=== PATIENT | female | born 1975 | race Caucasian/White ===

== ENCOUNTER 2021-07-26 10:02 | Emergency (ER) | payer OTHER, SELFPAY ==
--- NOTE | 2021-07-26 10:11 | ED.EAR ---
HPI - Ear Problem General Chief complaint: Ear Stated complaint: Possible Ear infection in right Ear Time Seen by Provider: 07/26/21 10:13 Source: patient and RN notes reviewed Mode of arrival: ambulatory Limitations: no limitations History of Present Illness HPI Narrative: 46-year-old female presents to the [facility] with complaints of right ear pain. Patient reports that it kept her up most of last night. Had tried Tylenol and some sinus pills. Was tested 2 days ago for flu, strep, Covid at another urgent care. Reports all of them were negative. Related Data Home Medications Medication Instructions Recorded Confirmed propranolol 10 mg PO DAILY 07/26/21 07/26/21 rizatriptan 10 mg PO ONCE 07/26/21 07/26/21 Allergies Allergy/AdvReac Type Severity Reaction Status Date / Time No Known Allergies Allergy Verified 07/26/21 10:19 Review of Systems Review of Systems: All systems reviewed & are unremarkable except as noted in HPI and below Constitutional: Constitutional: Reports no additional constitutional complaints, Denies chills and Denies fever(s) Eyes: Eyes: Reports no additional eye complaints ENT: Reports as per HPI, Denies vertigo, Denies dizziness, Denies nasal congestion and Denies sore throat Comments: Right ear pain Cardiovascular: Cardiovascular: Reports no additional cardiovascular complaints Respiratory: Respiratory: Reports no additional respiratory complaints Musculoskeletal: Musculoskeletal: Reports no additional musculoskeletal complaints Integumentary/Breasts: Skin/Breast: Reports system reviewed and no additional complaints, except as docu Neurologic: Reports system reviewed and no additional complaints, except as documented Psychiatric: Psychiatric: Reports no additional psychiatric complaints Allergic/Immunologic: Allergic/Immunologic: Reports no additional allergic/immunologic complaints [facility] Past Medical History Medical History (Updated 07/27/21 @ 09:45 by Corinne Maldonado) Migraines Surgical History Surgical History (Updated 07/27/21 @ 09:44 by Corinne Maldonado) No significant past surgical history Social History Social History Smoking status: Never smoker Alcohol intake: unknown Substance use: never Living arrangements: with family Gender identity (if verbalized by the patient): Female Comments At the time of my signature, I reviewed and agree with the nursing past medical, surgical, social, and family history. There is no relevant family history pertinent to the patient complaint. Exam Const: General: healthy appearing, no acute distress and alert Nutritional Appearance: well nourished Orientation/consciousness: patient oriented x3 Limitations: no limitations HENMT: Head: normal to inspection Ears: external ears normal, no periauricular adenopathy and TM abnormal erythematous on the right and with fluid behind the TM on the left General nose exam: Normal external nose present, Abnormal mucous membranes and turbinates present boggy and erythematous bilateral and Nasal discharge present clear Face and sinus: normal facial exam Mouth: Yes Normal oral and palatal mucosa present Throat: posterior oropharynx normal and uvula midline Eyes: Conjunctivae: conjunctivae normal Pupils: Equal, round and reactive pupils present Neck: Neck: normal visual inspection, no lymphadenopathy and no meningeal signs Chest: Chest palpation & inspection: normal inspection of the chest Resp: Effort & Inspection: normal respiratory effort and no use of accessory muscles Auscultation: clear to auscultation bilaterally, no rales, no rhonchi and no wheezes Cardio: Rate: regular rate Rhythm: regular rhythm : General: Yes no CVA tenderness Back/Spine/Pelvis: Back: no CVA tenderness Skin: General skin exam: normal color Rashes: no rashes Wounds: no wounds Neuro: General: patient oriented x3, moves all extremities, no menin
[2021-07-26 10:13] VITALS: BP 121/78; PULSE 74; RESP 20; TEMP 37.3; O2SAT 99
[2021-07-26 10:22] VITALS: BP 121/78; PULSE 74; RESP 20; TEMP 37.3; O2SAT 99
== END 2021-07-26 10:44 | disposition home or self-care (01) ==
PROVIDERS: Emergency Provider Nurse Practitioner; PCP Internal Medicine
DX: H66.91 Otitis media, unspecified, right ear (principal); J01.90 Acute sinusitis, unspecified
CPT/HCPCS: 99213; G0463

== ENCOUNTER 2021-08-03 08:11 | Emergency (ER) | payer OTHER, SELFPAY ==
[2021-08-03 08:20] VITALS: BP 98/71; PULSE 71; RESP 16; TEMP 36.7; O2SAT 99
[2021-08-03 08:26] VITALS: BP 98/71; PULSE 71; RESP 16; TEMP 36.7; O2SAT 99
--- NOTE | 2021-08-03 08:43 | ED.EAR ---
HPI - Ear Problem General Chief complaint: Ear Stated complaint: Ear pain Time Seen by Provider: 08/03/21 08:30 Source: patient and RN notes reviewed Mode of arrival: ambulatory Limitations: no limitations History of Present Illness HPI Narrative: Patient presents today complaint of right ear clogging x1 week. Patient was seen in urgent care 1 week ago and placed on antibiotics and eardrops for ear infection. Patient states the pain is gone but now she feels like she is, in a bubble. She has not been taking any other [id number] medications for symptoms prior to arrival. MD Complaint: decreased hearing Related Data Home Medications Medication Instructions Recorded Confirmed [id number] 4 drp RIGHT EAR DAILY 08/03/21 08/03/21 norethindrone ac-eth estradiol 1 tablet PO DAILY 08/03/21 08/03/21 propranolol 80 mg PO DAILY 08/03/21 08/03/21 rizatriptan 10 mg PO BID PRN 08/03/21 08/03/21 Allergies Allergy/AdvReac Type Severity Reaction Status Date / Time No Known Allergies Allergy Verified 08/03/21 08:25 Review of Systems Review of Systems: CONSTITUTIONAL: Denies body aches, fever, chills, or sweats. EYES: Denies visual changes, redness, or discharge. ENT: Denies rhinorrhea, congestion, sore throat, or otalgia.+ Right ear muffling CARDIOVASCULAR: Denies chest pain, palpitations, or edema. RESPIRATORY: Denies cough or dyspnea. GASTROINTESTINAL: Denies abdominal pain, nausea, vomiting, or diarrhea. GENITOURINARY: Denies dysuria or hematuria. SKIN: Denies rash, itching, or wounds. MUSCULOSKELETAL: Denies back pain, joint pain, or myalgia. NEUROLOGIC: Denies headache, numbness, tingling, or weakness. PSYCH: Denies depression or anxiety. PMFSH Comments At time of signature, I have reviewed and agree with nursing past medical, surgical, social and family history unless otherwise noted. Please see nursing chart for further information. There is no relevant family history pertinent to the presenting complaint Exam Narrative: GENERAL: Well-appearing, well-nourished, and in no acute distress. HEAD: Normocephalic, atraumatic. EYES: EOMI. No redness or drainage. Conjunctivae normal. ENT: Mucous membranes pink and moist. Nares clear. No rhinorrhea. Left ear normal. Right ear with middle ear effusion. No evidence of infection. Throat normal. Uvula midline. NECK: Normal AROM. Supple. No lymphadenopathy. CHEST: No respiratory distress. Clear to auscultation. HEART: Regular rate and rhythm. No murmur appreciated. Normal peripheral pulses. EXTREMITIES: Normal range of motion. No edema. SKIN: Warm, dry, no rash. Capillary refill normal. Normal skin turgor. NEURO: No focal deficits. Alert and oriented x3. Gait steady. PSYCH: Normal affect. No signs of depression or anxiety. Course Vital Signs Vital signs: Vital Signs Temperature 98.1 F 08/03/21 08:20 Pulse Rate 71 08/03/21 08:20 Respiratory Rate 16 08/03/21 08:20 Blood Pressure 98/71 L 08/03/21 08:20 Pulse Oximetry 99 08/03/21 08:20 Temperature 98.1 F 08/03/21 08:26 Pulse Rate 71 08/03/21 08:26 Respiratory Rate 16 08/03/21 08:26 Blood Pressure 98/71 L 08/03/21 08:26 Pulse Oximetry 99 08/03/21 08:26 Reviewed Medical Decision Making Differential Diagnosis Differential Diagnosis: Otitis media, otitis externa, ruptured TM, serous otitis, eustachian tube dysfunction Vital Signs Vital Signs: Vital Signs Temperature 98.1 F 08/03/21 08:20 Pulse Rate 71 08/03/21 08:20 Respiratory Rate 16 08/03/21 08:20 Blood Pressure 98/71 L 08/03/21 08:20 Pulse Oximetry 99 08/03/21 08:20 Temperature 98.1 F 08/03/21 08:26 Pulse Rate 71 08/03/21 08:26 Respiratory Rate 16 08/03/21 08:26 Blood Pressure 98/71 L 08/03/21 08:26 Pulse Oximetry 99 08/03/21 08:26 Critical Care Time Critical Care Time Critical Care Time: No Discharge Plan Discharge Clinical Impression: Acute serous otitis media o
== END 2021-08-03 08:51 | disposition home or self-care (01) ==
PROVIDERS: Emergency Provider Nurse Practitioner; PCP Internal Medicine
DX: H65.01 Acute serous otitis media, right ear (principal)
CPT/HCPCS: 99211; G0463

== ENCOUNTER 2023-07-15 16:26 | Emergency (ER) | payer OTHER, SELFPAY ==
--- NOTE | ~2023-07-15 | XR_ITS ---
EXAMINATION: XR hand RT min 3V DATE: 07/15/2023 16:40 INDICATION: Trauma to the right third digit while playing basketball 2 weeks prior TECHNIQUE: Posteroanterior, oblique and lateral views of the right hand were obtained. COMPARISON: None. FINDINGS: Nondisplaced volar plate avulsion fracture at the palmar base of the right third middle phalanx. This involves a minimal portion of the articular surfaces without significant fracture gap or incongruity . Alignment remains essentially anatomic. No other fractures identified. Joint spaces are otherwise n ormal. IMPRESSION: 1. Nondisplaced volar plate avulsion fracture at the base of the right third middle phalanx. Reviewed, dictated and finalized at location A. IMPRESSION: 1. Nondisplaced volar plate avulsion fracture at the base of the right third mi ddle phalanx.
[2023-07-15 16:34] VITALS: BP 115/84; PULSE 82; RESP 16; TEMP 36.9; O2SAT 99
[2023-07-15 16:35] VITALS: BP 115/84; PULSE 82; RESP 16; TEMP 36.9; O2SAT 99
--- NOTE | 2023-07-15 16:37 | ED.UPPEXIN ---
HPI - Extremity Injury (Upper) General Chief Complaint: Extremity Injury, Upper Stated Complaint: right finger injury History of Present Illness HPI narrative: Pt is a 48 y/o female, presents to with two week hx of pain to the right middle digit at the PIP joint after she jammed it playing basketball with her son two weeks ago. She has nerissa taped the digit and treated supportively but the digit continues to swell and remains painful. She denies any other associated symptoms or modifying factors. Related Data Allergies Allergy/AdvReac Type Severity Reaction Status Date / Time No Known Allergies Allergy Verified 11/21/21 11:35 Review of Systems Musculoskeletal: Musculoskeletal: Reports as per [facility] Past Medical History Medical History (Updated 07/15/23 @ 17:03 by DAVID Carr) Migraines Surgical History Surgical History (System 11/21/21 @ 11:35 by Eyad Mendoza) No significant past surgical history Social History Social History (System 11/21/21 @ 11:35 by Eyad Mendoza) Smoking status: Never smoker Alcohol intake: unknown Substance use: never Living arrangements: with family Gender identity (if verbalized by the patient): Female Exam Const: General: cooperative, healthy appearing, comfortable, no acute distress, well developed, alert, awake and Physically active Nutritional Appearance: average body habitus Orientation/consciousness: oriented to person, oriented to place, oriented to time and patient oriented x3 HENMT: Head: normal to inspection, normocephalic and atraumatic Face and sinus: normal facial exam and sinuses nontender Throat: posterior oropharynx normal, tonsils normal and uvula midline Eyes: General: appearance normal, both eyes and all related structures Visual Zhang: normal visual zhang by confrontation Alignment and Position: alignment normal EOM: EOMs intact bilaterally Neck: Neck: normal visual inspection, full ROM, no lymphadenopathy and no meningeal signs Resp: Effort & Inspection: normal respiratory effort Auscultation: clear to auscultation bilaterally Cardio: Rate: regular rate Rhythm: regular rhythm Skin: General skin exam: normal color and no rashes or lesions noted Neuro: General: oriented to person, oriented to place, oriented to time, patient oriented x3, gait normal, tone normal, moves all extremities and no focal motor deficits Extrem: Right upper extremity: normal to inspection, full ROM, normal capillary refill and Extremity exam: right hand (Right 3rd PIP TTP, mild STS, no ecchymosis or deformity) Course Course Emergency Course: right hand x ray, + for avulsion fracture of the base of the middle phalanx. FU with hand, pt is agreeable with plan. Level of Care: Express Care Visit ([id number]) Vital Signs Vital signs: Vital Signs Temperature 36.9 C 07/15/23 16:34 Pulse Rate 82 07/15/23 16:34 Respiratory Rate 16 07/15/23 16:34 Blood Pressure 115/84 07/15/23 16:34 Pulse Oximetry 99 07/15/23 16:34 Oxygen Delivery Room Air 07/15/23 16:34 Temperature 36.9 C 07/15/23 16:35 Pulse Rate 82 07/15/23 16:35 Respiratory Rate 16 07/15/23 16:35 Blood Pressure 115/84 07/15/23 16:35 Pulse Oximetry 99 07/15/23 16:35 Oxygen Delivery Room Air 07/15/23 16:35 MDM - Extremity Injury (Upper) MDM Narrative Medical decision making narrative: RICE, finger splint, hand FU. APAP or Motrin for pain as directed OTC. Pt is agreeable with plan Differential Diagnosis Differential diagnosis: Likely finger sprain and fracture of hand (finger fracture) Discharge Plan Discharge Clinical Impression: Closed fracture of phalanx of finger of right hand Qualifiers: Encounter type: initial encounter Finger: middle finger Phalanx: middle Fracture alignment: nondisplaced Qualified Code(s): S62.652A - Nondisplaced fracture of middle phalanx of right middle finger, initial encounter for closed fracture Patient Disposition:
== END 2023-07-15 17:03 | disposition home or self-care (01) ==
PROVIDERS: Emergency Provider Nurse Practitioner Family; PCP Internal Medicine
DX: S62.652A Nondisplaced fracture of middle phalanx of right middle finger, initial encounter for closed fracture (principal); X58.XXXA Exposure to other specified factors, initial encounter; Y93.67 Activity, basketball
CPT/HCPCS: 29130; 73130; 99214; G0463

== ENCOUNTER 2024-06-03 17:01 | Emergency (ER) | payer OTHER, SELFPAY ==
[2024-06-03 17:05] VITALS: BP 120/78; PULSE 89; RESP 16; TEMP 36.6; O2SAT 100
--- NOTE | 2024-06-03 17:15 | ED.URI ---
HPI - URI/Sore Throat General Chief Complaint: Upper Respiratory Infection Stated Complaint: Ears/chest congestion History of Present Illness [facility] Narrative: patient is a 49-year-old female, presents to [facility] with a 3 day history of URI symptoms, otalgia bilaterally, worse on the right with a scratchy throat a slight dry cough. She has felt feverish but denies taking her temperature to confirm. She has no known sick contacts, she has not traveled. She is taking [id number]-orr-[id number] cold medication without much relief, prompting her visit. She denies chest pain shortness of breath, she has no abdominal pain nausea vomiting or diarrhea and she is urinating normally. Related Data Allergies Allergy/AdvReac Type Severity Reaction Status Date / Time No Known Allergies Allergy Verified 09/03/23 15:44 Review of Systems ENT: Comments: Refer to [facility] Past Medical History Medical History Migraines Surgical History Surgical History (System 11/21/21 @ 11:35 by Eyad Mendoza) No significant past surgical history Social History Social History (Updated 07/17/23 @ 13:49 by Melita Reeder MA) Smoking status: Never smoker Alcohol intake: unknown Substance use: never Lack of Transportation: No Lack of Food: Never True Current Housing: I Have Housing Concerned About Future Housing: No Difficulty Paying Gas/Electric Bills: No Difficulty Paying for Meds: No Currently Unemployed: No Education: Associate Degree Difficulty w/ Childcare or Family Care: No Living arrangements: with family Gender identity (if verbalized by the patient): Female Exam Const: General: healthy appearing and no acute distress Nutritional Appearance: well nourished Orientation/consciousness: patient oriented x3 Limitations: no limitations HENMT: Head: normal to inspection Ears: TM abnormal Face and sinus: normal facial exam and sinus tenderness frontal and ethmoid Mouth: Yes Normal oral and palatal mucosa present, Yes lip normal and Yes moist mucous membranes Teeth and gingiva: dentition normal Throat: posterior oropharynx normal Other: right TM is beefy red, with a purulent effusion, bulging TM noted no perforation, EAC and right-sided unremarkable. The left ear canal has some cerumen present, portion of the TM that is visible appears slightly pink but translucent. Eyes: Conjunctivae: conjunctivae normal Pupils: Equal, round and reactive pupils present EOM: EOMs intact bilaterally Neck: Neck: normal visual inspection, no lymphadenopathy and no meningeal signs Resp: Effort & Inspection: normal respiratory effort Auscultation: clear to auscultation bilaterally Other: Dry hacking cough is noted throughout exam Cardio: Rate: regular rate Rhythm: regular rhythm Skin: Rashes: no rashes Neuro: General: patient oriented x3, moves all extremities, no meningeal signs, no focal motor deficits and CN's II-XI intact bilaterally Cranial nerves: Yes Nystagmus not present Speech: normal speech Gait exam (Neuro): Normal gait present Extrem: General: normal to inspection and no clubbing, cyanosis or edema Course Course Emergency Course: exam is concerning for postviral right otitis media. Will treat with oral antibiotics, short steroid course and cough suppressant. Follow up with PCP in 3-5 days if symptoms are not resolving. Patient is agreeable with plan. Level of Care: Express Care Visit ([id number]) Vital Signs Vital signs: Vital Signs Temperature 36.6 C 06/03/24 17:05 Pulse Rate 89 06/03/24 17:05 Respiratory Rate 16 06/03/24 17:05 Blood Pressure 120/78 06/03/24 17:05 Pulse Oximetry 100 06/03/24 17:05 Oxygen Delivery Autopap 06/03/24 17:05 Temperature 36.6 C 06/03/24 17:05 Pulse Rate 89 06/03/24 17:05 Respiratory Rate 16 06/03/24 17:05 Blood Pressure 120/78 06/03/24 17:05 Pulse Oximetry 1
== END 2024-06-03 17:31 | disposition home or self-care (01) ==
PROVIDERS: Emergency Provider Nurse Practitioner Family; PCP Internal Medicine
DX: H66.001 Acute suppurative otitis media without spontaneous rupture of ear drum, right ear (principal); J01.10 Acute frontal sinusitis, unspecified
CPT/HCPCS: 99213; G0463